=== PATIENT | male | born 1985 ===

== ENCOUNTER 2021-11-30 11:36 | Inpatient (IN) | payer SELFPAY ==
[2021-11-30] MEDS ORDERED: KETOROLAC 60 MG/2 ML INJ IM ONE (11:44)
[2021-11-30] MEDS ORDERED: MORPHINE 4 MG/1 ML INJ IM ONE (11:44)
[2021-11-30] MEDS ORDERED: ONDANSETRON 4 MG/2 ML INJ IV ONE (11:48)
[2021-11-30] MEDS ORDERED: MORPHINE 4 MG/1 ML INJ IV ONE ×2 (11:48→12:28)
[2021-11-30] MEDS ORDERED: SODIUM CHLORIDE 0.9% 1000 ML 1,000 ML IV ONE (11:48)
[2021-11-30] MEDS ORDERED: KETOROLAC 30 MG/1 ML INJ IV ONE (11:48)
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
[2021-11-30] MEDS ORDERED: ONDANSETRON 4 MG/2 ML INJ IV PRN (14:30)
[2021-11-30] MEDS ORDERED: SODIUM CHLORIDE 0.9% 1000 ML 1,000 ML IV SCH (15:00)
[2021-11-30] MEDS: HYDROmorphone 1 MG/1 ML INJ IV PRN ×3 (15:32→21:55)
[2021-12-01] MEDS: HYDROmorphone 1 MG/1 ML INJ IV PRN ×4 (00:56→11:40)
[2021-12-01] MEDS: oxyCODONE /ACETAMINOPHEN 5-325MG TAB PO PRN (05:38)
[2021-12-01 07:53] LABS: Basophils # (Auto) 0.1 K/mm3 (0.0-0.1); Basophils % (Auto) 0.7 % (0.0-1.8); Eosinophils # (Auto) 0.1 K/mm3 (0.0-0.4); Eosinophils % (Auto) 1.1 % (0.0-4.3); Hematocrit 39.7 % (35.5-45.6); Hemoglobin 13.2 gm/dl (11.8-15.2); Lymphocytes # (Auto) 2.2 K/mm3 (1.2-5.4); Lymphocytes % (Auto) 26.9 % (13.4-35.0); Mean Corpuscular HGB Conc 33 % (32-34); Mean Corpuscular Volume 88 fl (84-94); Monocytes # (Auto) 0.8 K/mm3 (0.0-0.8); Monocytes % (Auto) 10.2 % (0.0-7.3); Platelet Count 222 K/mm3 (140-440); Red Blood Count 4.53 M/mm3 (3.65-5.03); Red Cell Distribution Width 13.3 % (13.2-15.2)
[2021-12-01 08:07] LABS: BUN/Creatinine Ratio 15; Blood Urea Nitrogen 12 mg/dL (9-20); Calcium 8.9 mg/dL (8.4-10.2); Hemolysis Index 11
[2021-12-01] MEDS: ACETAMINOPHEN 325 MG TAB PO PRN ×2 (10:17→13:14)
--- NOTE | 2021-12-01 12:38 | Discharge Summary ---
Providers - Providers Date of Admission: 11/30/21 14:30 Date of discharge: 12/02/21 Attending physician: WILDA RICO 11/30/21 14:01 Consult to Physician [CONS] Stat Comment: Consulting Provider: MARY KATE HINES Physician Instructions: Reason For Exam: Medial malleolus/fibula fracture right ankle Primary care physician: BREASTFEEDING PROGRAM COORDINATOR Hospitalization Condition: Stable Disposition: 01 HOME / SELF CARE / HOMELESS Final Discharge Diagnosis (Prints w/discharge instructions): --Bimalleolar ankle fracture right Time spent for discharge: 34 minutes Exam - Constitutional Vitals: Temp Pulse Resp BP Pulse Ox 98.1 F 93 H 20 153/105 97 12/01/21 05:51 12/01/21 05:51 12/01/21 11:40 12/01/21 05:51 12/01/21 08:52 Plan Activity: fall precautions Weight Bearing Status: Non-Weight Bearing Diet: low fat, low salt Follow up with: PRIMARY MD SHAQ [Primary Care Provider] - 3-5 Days MARY KATE HINES MD [Staff Physician] - 7 Days Prescriptions: oxyCODONE /ACETAMINOPHEN [Percocet 5/325 mg] 1 tab PO Q6H PRN #20 tablet PRN Reason: Pain, Moderate (4-6)
[2021-12-01] MEDS ORDERED: LACTATED RINGERS 1,000 ML ONE ×2 (12:48→14:58)
[2021-12-01] MEDS ORDERED: propofoL 200 MG/20 ML VIAL IV ONE (12:50)
[2021-12-01] MEDS ORDERED: fentaNYL 100 MCG/2 ML INJ ONE (12:50)
[2021-12-01] MEDS ORDERED: LIDOCAINE MPF (2%) 20 MG/1 ML VIAL 5 ML ONE (12:50)
[2021-12-01] MEDS ORDERED: dexAMETHasone 4 MG/ML VIAL ONE (12:58)
[2021-12-01] MEDS ORDERED: BUPIVACAINE/PF (0.25%) 2.5 MG/ML 30 ML VIAL INFILTRATI ONE (12:58)
[2021-12-01] MEDS ORDERED: HYDROmorphone 1 MG/1 ML INJ IV PRN (13:00)
[2021-12-01] MEDS ORDERED: CELECOXIB 200 MG CAP PO NR (13:00)
[2021-12-01] MEDS ORDERED: GABAPENTIN 300 MG CAP PO NR (13:00)
[2021-12-01] MEDS ORDERED: fentaNYL 100 MCG/2 ML INJ IV SCH (13:00)
[2021-12-01] MEDS ORDERED: MIDAZOLAM 2 MG/2 ML INJ IV NR (13:00)
--- NOTE | 2021-12-01 13:00 | Anesthesia Day of Surgery ---
Anesthesia Day of Surgery - Day of Surgery Patient Examined: Yes Patient H&P Reviewed: Yes Patient is NPO: Yes
--- NOTE | 2021-12-01 13:00 | Anesthesia Consultation ---
Anesthesia Consult and Med Hx Date of service: 12/01/21 - Airway Anesthetic Teeth Evaluation: Good ROM Head & Neck: Adequate Mental/Hyoid Distance: Adequate Mallampati Class: Class III Intubation Access Assessment: Possibly Difficult - Pre-Operative Health Status ASA Pre-Surgery Classification: ASA1 Proposed Anesthetic Plan: General Nerve Block: adductor canal - Pulmonary Hx Smoking: No Hx Respiratory Symptoms: No - Cardiovascular System Hx Hypertension: No Hx Heart Attack/AMI: No Hx Percutaneous Transluminal Coronary Angioplasty (PTCA): No - Central Nervous System CVA: No - Endocrine Hx Renal Disease: No Hx Liver Disease: No Hx Insulin Dependent Diabetes: No Hx Non-Insulin Dependent Diabetes: No Hx Thyroid Disease: No - Additional Comments Anesthesia Medical History Comments: No hx anesthetic complications.
[2021-12-01] MEDS ORDERED: ceFAZolin/Water 2 GM/20 ML 2 GM/20 ML SYRINGE IV ONE (13:47)
[2021-12-01] MEDS ORDERED: ceFAZolin/Water 2 GM/20 ML 2 GM/20 ML SYRINGE IV NR (14:00)
[2021-12-01] MEDS ORDERED: LACTATED RINGERS 1,000 ML IV SCH (14:00)
[2021-12-01] MEDS ORDERED: SODIUM CHLORIDE 0.9% IRR 1,500 ML BOTTLE IR ONE (14:26)
[2021-12-01] MEDS ORDERED: LIDOCAINE PF 100 MG/5 ML (CARDIAC SYRINGE) IV ONE (14:58)
[2021-12-01] MEDS ORDERED: dexAMETHasone 20 MG/5 ML VIAL ONE (14:58)
[2021-12-01] MEDS ORDERED: ONDANSETRON 4 MG/2 ML INJ ONE (15:21)
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
--- NOTE | 2021-12-01 16:42 | Procedure Note ---
Date of procedure: 12/01/21 Pre-op diagnosis: Bimalleolar ankle fracture right Post-op diagnosis: same Procedure: Open reduction internal fixation right ankle fracture Procedure The patient was brought to the OR after having a femoral nerve block in preop holding for Postop pain management. The patient was placed on the OR table in supine position following induction and intubation the patient's left lower extremity was prepped and draped in the usual sterile manner. A timeout p rocedure was done to identify the patient and the correct operative site. The leg was then exsanguinated followed by inflation of the pneumatic tourniquet to 300 mmHg. A lateral incision was made over the distal fibula this is taken down sharply through skin and subcutaneous the fracture site was identified and using gentle manipulation the fracture fragments were reduced into a more anatomic po sition next a 8-hole one third semitubular plate was applied with screws of appropriate length and AP and lateral view was obtained and showed good reduction at the fracture and placement of the hardware. Next a curvlinear incision was made over the medial malleolus is then taken down sharply through skin and subcutaneous the fracture was identified and again using gentle manipulation I was held in place by way of a bone clamp next 2 small threaded K wires were used followed by placement of our 4.0 50 mm length cannulated screws again AP and lateral views were obtained showing good reduction medially. The wound was copiously irrigated the medial and lateral incisions were closed in a standard routine fashion postoperative dressings were applied as well as a well- padded posterior mold the patient tolerated the procedure there were no complications and he was sent to postanesthesia recovery in stable condition Anesthesia: MAC, regional Surgeon: MARY KATE HINES (Effie Montgomery. 1st assist) Estimated blood loss: minimal Pathology: none Condition: stable Disposition: PACU
[2021-12-02] MEDS: oxyCODONE /ACETAMINOPHEN 5-325MG TAB PO PRN (02:39)
--- NOTE | 2021-12-02 07:12 | XRay Report ---
XR ankle 2V RT INDICATION: POST OP AFTER SURGERY.. COMPARISON: Radiographs 11/30/2021 FINDINGS: 2 digital fluoroscopic images demonstrate ORIF of distal fibular fracture and medial malleolar fractu re. Alignment is now anatomic. Hardware is intact. Fluoroscopy time: 0.1 minute. Fluoroscopic images: 2. Signer Name: Kristin Styles MD Signed: 12/02/2021 7:08 AM Workstation Name: [id number]
--- NOTE | 2021-12-02 09:27 | Progress Note ---
Assessment and Plan (1) Fracture, fibula closed, shaft Current Visit: Yes Status: Acute Qualifiers: Laterality: right Plan to address problem: Orthopedic surgery service consulted. Patient is pending surgical intervention, pain control, n.p.o. after midnight, IV fluid resuscitation therapy. (2) Fx medial malleolus-closed Current Visit: Yes Status: Acute Qualifiers: Laterality: right Plan to address problem: Orthopedic surgery service consulted. Patient is pending surgical intervention, pain control, n.p.o. after midnight, IV fluid resuscitation therapy. (3) DVT prophylaxis Current Visit: Yes Status: Acute Plan to address problem: SCD to bilateral lower extremities while in bed --Full CODE STATUS Disposition: Planned for Open reduction internal fixation right ankle fracture of right bimalleolar ankle fracture today, continue pain management and follow clinically. Subjective Date of service: 12/01/21 Interval history: Patient seen and examined. Medical records and medication list reviewed. No acute event overnight noted by the RN. Patient complains of right leg pain Discussed plan of care at bedside with patient. Objective - Exam Narrative Exam: GENERAL: well-developed and well-nourished male lying on bed appeared to be in no discomfort. HEENT: Normocephalic. Atraumatic. No conjunctival congestion or icterus. Patient has moist mucous membranes. NECK: Supple. Trachea midline. CHEST/LUNGS: Clear to auscultated bilaterally, breathing nonlabored. No wheezes crackles or rhonchi. HEART/CARDIOVASCULAR: Regular in rate and rhythm. S1 and S2 positive. ABDOMEN: Abdomen is soft, nontender. Patient has normal bowel sounds. SKIN: There is no rash. Warm and dry. NEURO: No focal motor deficit. Follows command. MUSCULOSKELETAL: Right leg with wound dressing EXTRIMITY: No edema, no cyanosis or clubbing. PSYCH: Cooperative. - Constitutional Vitals: Vital Signs - 12hr 12/02/21 04:43 Temperature 97.8 F Pulse Rate 89 Respiratory 16 Rate Blood Pressure 119/69 O2 Sat by Pulse 95 Oximetry - Labs CBC & Chem 7: 12/01/21 06:51 12/01/21 06:51
[2021-12-02] MEDS: HYDROmorphone 1 MG/1 ML INJ IV PRN ×3 (10:59→19:50)
[2021-12-02] MEDS: MORPHINE 4 MG/1 ML INJ IV PRN (23:09)
[2021-12-03] MEDS: KETOROLAC 30 MG/1 ML INJ IV PRN ×2 (01:52→09:34)
[2021-12-03] MEDS: MORPHINE 4 MG/1 ML INJ IV PRN ×2 (03:33→09:34)
[2021-12-03] MEDS: oxyCODONE /ACETAMINOPHEN 5-325MG TAB PO PRN (10:40)
[2021-12-03 12:09] VITALS: BP 148/93
[2021-12-03] MEDS: HYDROmorphone 1 MG/1 ML INJ IV PRN (12:50)
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
== END 2021-12-03 13:20 | disposition home or self-care (01) | DRG 494 ==
LOC: ED 11:36 → 3A 14:30
PROVIDERS: ADMIT Internal Medicine; ATTEND Internal Medicine
PROC: 0QSG04Z Reposition Right Tibia with Internal Fixation Device, Open Approach (ICD-10-PCS; principal; 2021-12-01)
DX: S82.841A Displaced bimalleolar fracture of right lower leg, initial encounter for closed fracture (principal); S82.401A Unspecified fracture of shaft of right fibula, initial encounter for closed fracture; S82.54XA Nondisplaced fracture of medial malleolus of right tibia, initial encounter for closed fracture; S82.454A Nondisplaced comminuted fracture of shaft of right fibula, initial encounter for closed fracture; Y92.410 Unspecified street and highway as the place of occurrence of the external cause; Y93.89 Activity, other specified; Y92.89 Other specified places as the place of occurrence of the external cause; Y99.8 Other external cause status
CPT/HCPCS: 36415; 64450; 80048; 85025; G0378; J3490; J7120; Q0162; C1713; J0690; J1100; J1170; J1885; J2001; J2250; J2270; J2405; J2704; J3010; J7030

== ENCOUNTER 2021-12-09 12:33 | Outpatient (CLI) | payer OTHER ==
--- NOTE | 2021-12-09 14:18 | XRay Report ---
RIGHT ANKLE 3 VIEW(S) INDICATION / CLINICAL INFORMATION: UNSPECIFIED FRACTURE OF UNSPECIFIED LOWER LEG INITIAL FRACTURE COMPARISON: 11/30/2021 and 12/01/2021 FINDINGS: BONES / JOINT(S): ORIF of distal fibular fracture and medial malleolar fractures are noted. The hardw are appears intact. There is also a "posterior" malleolar fracture. There is some mild healing noted at the fracture sites they are incompletely united. No significant arthritis. SOFT TISSUES: No significant abnormality. ADDITIONAL FINDINGS: None. Signer Name: Sonny Freitas MD Signed: 12/09/2021 2:13 PM Workstation Name: [id number]
== END 2021-12-09 12:34 | disposition home or self-care (01) ==
LOC: XRAY 12:33
PROVIDERS: ATTEND Orthopaedic Surgery
DX: S82.61XA Displaced fracture of lateral malleolus of right fibula, initial encounter for closed fracture (principal); S82.891D Other fracture of right lower leg, subsequent encounter for closed fracture with routine healing; X58.XXXD Exposure to other specified factors, subsequent encounter; X58.XXXA Exposure to other specified factors, initial encounter; Y93.89 Activity, other specified; Y92.89 Other specified places as the place of occurrence of the external cause; Y99.8 Other external cause status

== ENCOUNTER 2022-01-05 11:19 | Outpatient (CLI) | payer OTHER ==
--- NOTE | 2022-01-05 12:20 | XRay Report ---
Right ankle 3 views INDICATION: Ankle pain FINDINGS: Postoperative change with fracture fixation the fibular shaft, posterior malleolus and medi al malleolus. No significant change and bridging callus or healing. Signer Name: Alexey Simons MD Signed: 01/05/2022 12:15 PM Workstation Name: [id number]
== END 2022-01-05 11:20 | disposition home or self-care (01) ==
LOC: XRAY 11:19
PROVIDERS: ATTEND Orthopaedic Surgery
DX: S82.401A Unspecified fracture of shaft of right fibula, initial encounter for closed fracture (principal); X58.XXXA Exposure to other specified factors, initial encounter; Y93.89 Activity, other specified; Y92.89 Other specified places as the place of occurrence of the external cause; Y99.8 Other external cause status

== ENCOUNTER 2022-01-19 09:42 | Outpatient (CLI) | payer OTHER ==
--- NOTE | 2022-01-19 10:53 | XRay Report ---
RIGHT ANKLE 4 VIEWS INDICATION / CLINICAL INFORMATION: S82.90XA, Unspecified fracture of unspecified lower leg COMPARISON: 01/05/2022 FINDINGS: BONES / JOINT(S): There is interval healing at the distal fibular diaphyseal fracture. Distal fibular cortical plate with screw fixation and interfragmentary screw unchanged. There is persistent lucency at the medial malleolus fracture though bridging callus is seen. Medial malleolar screws are unchang ed. There appears to be a healing posterior malleolus fracture as well. No new skeletal findings. SOFT TISSUES: No significant abnormality. ADDITIONAL FINDINGS: None. IMPRESSION: Interval healing at the distal fibular diaphyseal, posterior malleolus, and medial malleolus fracture s. No new findings. Signer Name: Cal Yang MD Signed: 01/19/2022 10:48 AM Workstation Name: [id number]
== END 2022-01-19 09:43 | disposition home or self-care (01) ==
LOC: XRAY 09:42
PROVIDERS: ATTEND Orthopaedic Surgery
DX: S82.401D Unspecified fracture of shaft of right fibula, subsequent encounter for closed fracture with routine healing (principal); S82.51XD Displaced fracture of medial malleolus of right tibia, subsequent encounter for closed fracture with routine healing; X58.XXXD Exposure to other specified factors, subsequent encounter

== ENCOUNTER 2022-02-08 10:08 | Outpatient (CLI) | payer OTHER ==
--- NOTE | 2022-02-08 11:08 | XRay Report ---
RIGHT ANKLE 3 VIEWS INDICATION: S82.90XA CLOSED FRACTURE LOWER LEG. COMPARISON: 01/19/2022 IMPRESSION: Previously described internally fixated fractures of the distal fibular shaft and medial malleolus are unchanged in position and alignment since 01/19/2022. Mild calcified callus at the frac ture sites appears slightly increased since the previous exam although fracture lines remain evident. No new acute process is appreciated. No significant DJD. There is persistent soft tissue swelling. Signer Name: Cleve Culver Jr, MD Signed: 02/08/2022 11:04 AM Workstation Name: [id number]
== END 2022-02-08 10:09 | disposition home or self-care (01) ==
LOC: XRAY 10:08
PROVIDERS: ATTEND Orthopaedic Surgery
DX: S82.91XA Unspecified fracture of right lower leg, initial encounter for closed fracture (principal); X58.XXXA Exposure to other specified factors, initial encounter; Y93.89 Activity, other specified; Y92.89 Other specified places as the place of occurrence of the external cause; Y99.8 Other external cause status